=== PATIENT | female | born 1930 | race Caucasian/White ===

== ENCOUNTER 2019-11-24 15:58 | Emergency (ER) | payer MEDICARE, BC ==
[2019-11-24 16:13] VITALS: RESP 16; TEMP 97.8
[2019-11-24] MEDS ORDERED: DIPH,PERTUS(ACELL)TETVAC-LF 0.5 ML VIAL IM ONE (16:14)
--- NOTE | 2019-11-24 16:16 | ED ---
General Adult HPI - General Chief complaint: Fall Stated complaint: Fall Time Seen by Provider: 11/24/19 16:00 Source: EMS Mode of arrival: EMS Limitations: physical limitation - History of Present Illness Initial comments: Dictation was produced using [email or web address] dictation software. please excuse any grammatical, word or spelling errors. This patient was cared for during a federal and state declared state of emergency secondary to Covid 19 Chief Complaint: 89-year-old female presents after fall History of Present Illness: 81-year-old female she presents today after fall. Patient has chronic dizziness from her dementia. Patient states she was going up the stairs when her little dog caused her to fall. Patient states she rolled down several steps. Patient states she struck the back of her head on the cement. Denies any loss of consciousness. Patient complains of mild head pain. She has no other complaints. Patient's ventilatory on scene. She does not take any blood thinners. Patient has no other complaints at this time. The ROS documented in this emergency department record has been reviewed and confirmed by me. Those systems with pertinent positive or negative responses have been documented in the HPI. All other systems are other negative and/or noncontributory. PHYSICAL EXAM: General Impression: Alert and oriented x3, not in acute distress HEENT: 1 cm hematoma over the occiput, there is a very small abrasion without any active bleeding to the occiput extra-ocular movements intact, pupils equal and reactive to light bilaterally, mucous membranes moist. Cardiovascular: Heart regular rate and rhythm Chest: Able to complete full sentences, no retractions, no tachypnea Abdomen: abdomen soft, non-tender, non-distended, no organomegaly Musculoskeletal: Pulses present and equal in all extremities, no peripheral edema Motor: no focal deficits noted Neurological: CN II-XII grossly intact, no focal motor or sensory deficits noted Skin: Intact with no visualized rashes Psych: Normal affect and mood ED course: 89-year-old female presents after fall. She does not take any blood thinners. She does complain of some mild head pain. Signs upon arrival are within acceptable limits. Patient's well-appearing at bedside. Computed tomography scan of the brain and C-spine was obtained. There are no acute intracranial processes. 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 Computed tomography scan of the C-spine shows degenerative changes without any acute processes. There is, however of diffuse increased lung markings that are nonspecific. Patient is not having any respiratory symptoms whatsoever. This is likely an incidental findin g follow-up with her primary care physician. Laboratory evaluation obtained. CBC, coag panel, metabolic panel was within acceptable limits. Patient able to her at baseline at bedside. She feels well prescription for discharge. She does not have any lacerations that require suture repair. Bleeding on her occiput is from an abrasion. Repeat EKG shows no dynamic changes. Patient has no pain complaints. Patient given a pressure dressing over the head. Patient able to minimal competitions. Patient will be discharged. Advised to follow-up with primary care physician. EKG interpretation: Ventricular rate safe for, normal sinus rhythm, RI interval 164, QRS 104, QTC 397. No RI prolongation, no QTC prolongation. There is poor R-wave progression. There is also Q waves in the precordial leads anteriorly. There is ST elevation in lead 3. No ST elevation in any contiguous leads.. No old EKG for comparison. Review of Systems ROS Statement: Those systems with pertinent positive or pertinent negative responses have been documented in the HPI. ROS Other: All systems not noted in ROS Statement are negative. Past Medical History Past Medical History: Dementia Past Surgical History: No Surgical Hx Reported Past Psychological History: No Psychological Hx Reported Smoking Status: Never smoker, Unknown if ever smoked Past Alcohol Use History: None Reported Past Drug Use History: None Reported General Exam Limitations: physical limitation Course Vital Signs 11/24/19 16:03 Temperature 97.8 F Pulse Rate 84 Respiratory 16 Rate Blood Pressure 184/83 O2 Sat by Pulse 95 Oximetry Medical Decision Making - Lab Data Result diagrams: 11/24/19 16:25 11/24/19 16:25 Lab Results 11/24/19 11/24/19 11/24/19 Range/Units 16:25 16:25 16:25 WBC 9.2 (3.8-10.6) k/uL RBC 4.14 (3.80-5.40) m/uL Hgb 11.9 (11.4-16.0) gm/dL Hct 35.9 (34.0-46.0) % MCV 86.7 (80.0-100.0) fL MCH 28.8 (25.0-35.0) pg MCHC 33.2 (31.0-37.0) g/dL RDW 13.6 (11.5-15.5) % Plt Count 283 (150-450) k/uL Neutrophils % 74 % Lymphocytes % 11 % Monocytes % 7 % Eosinophils % 6 % Basophils % 0 % Neutrophils # 6.8 (1.3-7.7) k/uL Lymphocytes # 1.0 (1.0-4.8) k/uL Monocytes # 0.6 (0-1.0) k/uL Eosinophils # 0.5 (0-0.7) k/uL Basophils # 0.0 (0-0.2) k/uL PT 10.2 (9.0-12.0) sec INR 1.0 (<1.2) APTT 22.4 (22.0-30.0) sec Sodium 132 L (137-145) mmol/L Potassium 4.1 (3.5-5.1) mmol/L Chloride 98 (98-107) mmol/L Carbon Dioxide 28 (22-30) mmol/L Anion Gap 6 mmol/L BUN 16 (7-17) mg/dL Creatinine 0.78 (0.52-1.04) mg/dL Est GFR (CKD-EPI)AfAm 79 (>60 ml/min/1.73 sqM) Est GFR (CKD-EPI)NonAf 68 (>60 ml/min/1.73 sqM) Glucose 134 H (74-99) mg/dL Calcium 9.2 (8.4-10.2) mg/dL Disposition Clinical Impression: Fall, Head contusion Disposition: HOME SELF-CARE Condition: Good Instructions (If sedation given, give patient instructions): Fall Prevention for Older Adults (ED) Is patient prescribed a controlled substance at d/c from ED?: No Referrals: Marianne Ayala DO [Primary Care Provider] - 1-2 days Time of Disposition: 17:23
[2019-11-24 16:39] LABS: Basophils % (A) 0 %; Eosinophils # (A) 0.5 k/uL (0-0.7); Eosinophils % (A) 6 %; HCT 35.9 % (34.0-46.0); HGB 11.9 gm/dL (11.4-16.0); Lymphocytes % (A) 11 %; MCH 28.8 pg (25.0-35.0); MCHC 33.2 g/dL (31.0-37.0); MCV 86.7 fL (80.0-100.0); Mean Platelet Volume 8.1; Monocytes # (A) 0.6 k/uL (0-1.0); Monocytes % (A) 7 %; Neutrophils # (A) 6.8 k/uL (1.3-7.7); Neutrophils % (A) 74 %; Platelet Count 283 k/uL (150-450); RBC 4.14 m/uL (3.80-5.40); RDW 13.6 % (11.5-15.5); WBC 9.2 k/uL (3.8-10.6)
[2019-11-24 16:47] LABS: Partial Thromboplastin Time 22.4 sec (22.0-30.0); Prothrombin Time 10.2 sec (9.0-12.0)
[2019-11-24 16:48] LABS: Calcium 9.2 mg/dL (8.4-10.2); Potassium 4.1 mmol/L (3.5-5.1)
--- NOTE | 2019-11-24 16:57 | CT ---
EXAMINATION TYPE: CT brain catrachita mustafa con DATE OF EXAM: 11/24/2019 COMPARISON: 09/06/2011 HISTORY: Fall, laceration to back of head. CT DLP: 1541.6 mGycm, Automated exposure control for dose reduction was used. CONTRAST: Patient injected with 0 mL of Isovue 300. CT of the brain is performed utilizing 3 mm thick sections through the posterior fossa and 3 mm thick sections through the remaining calvarium. Study is performed within 24 hours of arrival to the hospital. No abnormal hyperdensity is present to suggest an acute intracranial hemorrhage. 1.3 x 1.0 cm calcification in the left frontal region can be a calcified meningioma. No significant m ass effect on the adjacent brain is evident. No acute infarcts are evident. Mild periventricular white matter hypodensity is present compatible w ith microvascular ischemic changes. Ventricles and sulci are prominent for the patient age. Paranasal sinuses and mastoid air cells within the [id number] are clear. IMPRESSIONS: 1. Atrophy with chronic appearing periventricular white matter ischemic type changes. 2. Probable calcified meningioma left frontal region. This was present previously 3. No acute intracranial process. CT cervical spine. COMPARISON: None CT of the cervical spine is performed in the axial plane at 2 mm thick sections. Reconstructed image s in the coronal, and sagittal plane are reviewed on the computer. No acute fractures are evident. There is exaggeration of the cervical kyphosis. This is centered at C5-6. Degenerative disc changes a re present throughout the cervical spine with the greatest loss of disc height C5-6 C6-7. Some mild s coliosis is present. Vertebral body heights are preserved. Mild endplate spurring is present C5-6. Left foraminal stenosis is present C5-6 due to uncovertebral joint hypertrophy. Bilateral foraminal narrowing C6-7 is present from uncovertebral joint hypertrophy . Note is made of bilateral increased lung markings which are nonspecific. IMPRESSIONS: 1. Kyphosis through the cervical spine. 2. Degenerative disc changes. 3. Lower cervical spine foraminal narrowing. 4. Diffuse increased lung markings. Findings are nonspecific. Infectious etiologies pulmonary edema s hould be considered.
--- NOTE | 2019-11-24 17:12 | XR ---
EXAMINATION TYPE: XR pelvis AP view DATE OF EXAM: 11/24/2019 COMPARISON: None HISTORY: Fall, pain TECHNIQUE: AP pelvis FINDINGS: Femoral heads articulate with the acetabulum. No acute fractures are evident. Sacroiliac may ints and symphysis pubis are normal. Degenerative changes are within the scoliotic lumbar spine. Ther e may be attempted sacralization of L5 on the right. Normal bowel gas is present. IMPRESSION: 1. No acute osseous abnormality post trauma
--- NOTE | 2019-11-24 17:13 | XR ---
EXAMINATION TYPE: XR chest 2V DATE OF EXAM: 11/24/2019 COMPARISON: None INDICATION: Fall, pain TECHNIQUE: Frontal and lateral views of the chest are obtained. FINDINGS: The heart size is normal. The pulmonary vasculature is normal. No pneumothorax is evident. Displaced rib fractures are not evid ent. Mild increased lung markings are present. There is a hiatal hernia. IMPRESSION: 1. Mild diffuse increased lung markings. Correlate for volume overload. 2. Hiatal hernia 3. No suspicious acute posttraumatic changes.
[2019-11-24 17:34] VITALS: BP 139/71; PULSE 89
== END 2019-11-24 17:33 | disposition home or self-care (01) ==
LOC: EC 15:58
DX: S00.93XA Contusion of unspecified part of head, initial encounter (principal); S00.01XA Abrasion of scalp, initial encounter; W10.9XXA Fall (on) (from) unspecified stairs and steps, initial encounter; Y93.01 Activity, walking, marching and hiking
CPT/HCPCS: 36415; 70450; 71046; 72125; 72170; 80048; 85025; 85610; 85730; 93005; 99284